=== PATIENT | male | born 1950 | race Caucasian/White ===

== ENCOUNTER 2017-06-10 14:58 | Day surgery (SDC) | payer BC ==
--- OUTSIDE RECORDS SUMMARY | 2017-06-10 15:00 | XMS REPORT | Clinical Summary ---
:1950 Author Organization [facility] Address [address] [place] [address] Care Team Providers Name Role Phone Salvatore Louis REYNOLDS Primary Care Provider Allergies No Known Allergies Current Medications Prescription Sig. Disp. Refills Start Date End Date Status tamsulosin (FLOMAX) Take 0.4 mg Active 0.4 mg by mouth capsule,extended nightly. release 24hr aspirin (ECOTRIN) Take 81 mg by Active 81 MG enteric mouth daily. coated tablet cholecalciferol, Take 50,000 Active vitamin D3, Units by (VITAMIN D3) 2,000 mouth once a unit capsule week. capsule cholecalciferol, TK 1 C PO 3 04/16/2016 Active vitamin D3, 50,000 ONCE A WEEK unit capsule esomeprazole Take by Active magnesium 22.3 mg mouth. capsule,delayed release(DR/EC) clopidogrel Take 1 tablet 90 tablet 3 12/13/2016 Active (PLAVIX) 75 mg (75 mg total) tabletIndications: by mouth Coronary artery daily. disease involving [place] heart with angina pectoris, unspecified vessel or lesion type rosuvastatin Take 1 tablet 90 tablet 3 01/08/2017 01/08/2018 Active (CRESTOR) 20 MG (20 mg total) tablet by mouth daily. KRILL OIL ORAL Take by 10/30/2016 Discontinued mouth. rosuvastatin Take 1 tablet 90 tablet 3 03/20/2016 01/08/2017 Discontinued (CRESTOR) 20 MG (20 mg total) tablet by mouth daily. clopidogrel Take 1 tablet 90 tablet 3 06/06/2016 12/13/2016 Discontinued (PLAVIX) 75 mg (75 mg total) tabletIndications: by mouth Coronary artery daily. disease involving [place] heart with angina pectoris, unspecified vessel or lesion type metoprolol tartrate Take 1 tablet 60 tablet 11 06/27/2016 10/30/2016 Discontinued (LOPRESSOR) 25 mg (25 mg total) tablet by mouth 2 (two) times a day. Active Problems Problem Noted Date Chest pain 10/30/2016 Stented coronary artery 05/03/2016 Coronary arteriosclerosis in [place] artery 04/11/2016 SOB (shortness of breath) 03/20/2016 Coronary artery disease involving [place] coronary artery of [place] heart 03/20 Coronary artery disease involving [place] coronary artery of [place] heart 02/02 without angina pectoris Unstable angina 02/03/2016 Gastroesophageal reflux disease with esophagitis 02/03/2016 Encounters Date Type Specialty Care Team Description 01/08/2017 Refill Cardiology Lashaun Aranda MA Med Refill 12/13/2016 Refill Cardiology Sergei Segura MA Med Refill 11/19/2016 Telephone Cardiology Sergei Segura MA Results (lab work) 10/30/2016 Lab Lab Jaya Galloway MD Other chest pain; SOB (shortness of breath); Coronary artery disease of [place] artery of [place] heart with stable angina pectoris 10/30/2016 Office Visit Cardiology Jaya Galloway MD Chest pain, unspecified type (Primary Dx); SOB (shortness of breath); Coronary artery disease of [place] artery of [place] heart with stable angina pectoris; Coronary artery disease involving [place] coronary artery of [place] heart without angina pectoris; Stented coronary artery 06/27/2016 Refill Cardiology Vincent Murrell MA Med Refill after 06/09/2016 Family History Medical History Relation Name Comments No Known Problems Father Uterine cancer Mother Relation Name Status Comments Father Mother Social History Tobacco Use Types Packs/Day Years Used Date Current Every Day Smoker Cigarettes Started: 02/07/2016 Smokeless Tobacco: Never Used Tobacco Cessation: Ready to Quit: No Alcohol Use Drinks/Week oz/Week Comments No Sex Assigned at Date Recorded Not on file Last Filed Vital Signs Vital Sign Reading Time Taken Blood Pressure 100/55 10/30/2016 8:18 AM CDT Pulse 53 10/30/2016 8:18 AM CDT Temperature - - Respiratory Rate - - Oxygen Saturation - - Inhaled Oxygen Concentration - - Weight 75.3 kg (166 lb) 10/30/2016 8:18 AM CDT Height 170.2 cm (5' 7") 10/30/2016 8:18 AM CDT Body Mass Index 26 10/30/2016 8:18 AM CDT Plan of Treatment Health Maintenance Due Date Last Done Comments COLONOSCOPY 07/10/1999 ZOSTER VACCINE 2009 PNEUMOCOCCAL POLYSACCHARIDE VACCINE AGE 65 AND OVER 2014 PNEUMOCOCCAL-13 2014 INFLUENZA VACCINE 09/25/2017 Implants Implanted Type 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 Device Expiration Model / Identifier Date Serial / Lot Stent Crnry Xnce Alpn Evrlms Eltng Sys 3.00mm X 12mm Otw - [id number] Coronary N/A: N/A URIOSTEGUI VASCULAR 11/13/2018 [id number] 12 / Implanted: 04/11/2016 (Quantity not on file) Stents DEVICES / [id number] Stent Crnry Xnce Alpn Evrlms Eltng Sys 3.00mm X 08mm Otw - [id number] Coronary N/A: N/A URIOSTEGUI VASCULAR 01/13/2018 [id number] 08 / Implanted: 04/11/2016 (Quantity not on file) Stents DEVICES / [id number] Stent Systm Cor Xience Alpine Everm Elut 2.75 Mm X 12 Mm / R - [id number] Coronary N/A: N/A URIOSTEGUI VASCULAR 05/26/2017 [id number] 12 / Implanted: 04/11/2016 (Quantity not on file) Stents DEVICES / [id number] Stent Crnry Xnce Alpn Evrlms Eltng Sys 3.00mm X 15mm Otw - [id number] Coronary N/A: N/A URIOSTEGUI VASCULAR 06/13/2018 [id number] 15 / Implanted: 04/11/2016 (Quantity not on file) Stents DEVICES / [id number] Results NON HDL CHOLESTEROL ([facility]) (10/30/2016 9:36 AM) Component Value Ref Range Non-HDL cholesterol 74 <130 mg/dL (calc) Comment: For patients with diabetes plus 1 major ASCVD risk factor, treating to a non-HDL-C goal of <100 mg/dL (LDL-C of <70 mg/dL) is considered a therapeutic option. Specimen Performing Laboratory [facility] CHOL/HDLC RATIO ([facility]) (10/30/2016 9:36 AM) Component Value Ref Range Cholesterol/HDL ratio 2.6 <5.0 (calc) Specimen Performing Laboratory [facility] COPY RECEIVED FROM: (10/30/2016 9:36 AM) Component Value Ref Range Copy received from: Comment: [facility] [address] [facility] [address] [place] [address] Specimen Performing Laboratory [facility] LDL-CHOLESTEROL (REFLEX [facility]) (10/30/2016 9:36 AM) Component Value Ref Range LDL cholesterol calculated 56 mg/dL (calc) Comment: Reference range: <100 Desirable range <100 mg/dL for patients with CHD or diabetes and <70 mg/dL for diabetic patients with known heart disease. The Piyush calculation is a validated novel method that provides better accuracy than the Friedewald equation in the estimation of LDL-C, particularly when TG levels are 150-400 mg/dL and LDL-C levels are lower than 70 mg/dL. Reference:Marko SIMON et al. Comparison of a Novel Method vs the Friedewald Equation for Estimating Low-Density Lipoprotein Cholesterol Levels From the Standard Lipid Profile. FIONA. 2013;310(19): 0111-5639. For additional information, please refer to http://education.Corporama/faq/LFI705 (This link is being provided for informational/ educational purposes only.) Specimen Performing Laboratory [facility] COPY(IES) SENT TO: (10/30/2016 9:36 AM) Component Value Ref Range Copies/mL Comment: [facility] [address] [facility] [address] [place] [address] Specimen Performing Laboratory [facility] CBC with platelet and differential (10/30/2016 9:36 AM) Component Value Ref Range WBC 6.8 3.8 - 10.8 Thousand/uL RBC 4.14 (L) 4.20 - 5.80 Million/uL HGB 10.0 (L) 13.2 - 17.1 g/dL HCT 34.2 (L) 38.5 - 50.0 % MCV 82.6 80.0 - 100.0 fL MCH 24.2 (L) 27.0 - 33.0 pg MCHC 29.2 (L) 32.0 - 36.0 g/dL RDW 16.8 (H) 11.0 - 15.0 % Platelet count 340 140 - 400 Thousand/uL MPV 9.5 7.5 - 12.5 fL Neutrophils, absolute 4,189 1,500 - 7,800 cells/uL Lymphocytes, absolute 1,578 850 - 3,900 cells/uL Monocytes, absolute 612 200 - 950 cells/uL Eosinophils, absolute 340 15 - 500 cells/uL Basophils, absolute 82 0 - 200 cells/uL Neutrophils 61.6 % Lymphocytes 23.2 % Monocytes 9.0 % Eosinophils 5.0 % Basophils + RC 1.2 % Specimen Performing Laboratory [facility] Triglycerides (10/30/2016 9:36 AM) Component Value Ref Range Triglycerides 93 <150 mg/dL Specimen Performing Laboratory [facility] HDL cholesterol (10/30/2016 9:36 AM) Component Value Ref Range HDL cholesterol 47 >40 mg/dL Specimen Performing Laboratory [facility] Cholesterol (10/30/2016 9:36 AM) Component Value Ref Range Cholesterol, total 121 <200 mg/dL Specimen Performing Laboratory [facility] Lipid panel (10/30/2016 9:36 AM) Component Value Ref Range Cholesterol, total 121 <200 mg/dL HDL cholesterol 47 >40 mg/dL Triglycerides 93 <150 mg/dL LDL cholesterol calculated 56 mg/dL (calc) Comment: Reference range: <100 Desirable range <100 mg/dL for patients with CHD or diabetes and <70 mg/dL for diabetic patients with known heart disease. The KaylieMurguia calculation is a validated novel method that provides better accuracy than the Friedewald equation in the estimation of LDL-C, particularly when TG levels are 150-400 mg/dL and LDL-C levels are lower than 70 mg/dL. Reference:Marko SIMON et al. Comparison of a Novel Method vs the Friedewald Equation for Estimating Low-Density Lipoprotein Cholesterol Levels From the Standard Lipid Profile. FIONA. 2013;310(19): 3231-3546. For additional information, please refer to http://education.MoBank.DesignMyNight/faq/CNV524 (This link is being provided for informational/ educational purposes only.) Cholesterol/HDL ratio 2.6 <5.0 (calc) Non-HDL cholesterol 74 <130 mg/dL (calc) Comment: For patients with diabetes plus 1 major ASCVD risk factor, treating to a non-HDL-C goal of <100 mg/dL (LDL-C of <70 mg/dL) is considered a therapeutic option. Specimen Performing Laboratory [facility] Comprehensive metabolic panel (10/30/2016 9:36 AM) Component Value Ref Range Glucose 97 65 - 99 mg/dL Comment: Fasting reference interval BUN, whole blood 20 7 - 25 mg/dL Creatinine 0.96 0.70 - 1.25 mg/dL Comment: For patients >49 years of age, the reference limit for Creatinine is approximately 13% higher for people identified as -Hungarian. EGFR Non-Afr. Hungarian 81 > OR=60 mL/min/1.73m2 EGFR 94 > OR=60 mL/min/1.73m2 BUN/creatinine ratio NOT APPLICABLE 6 - 22 (calc) Sodium 141 135 - 146 mmol/L Potassium 5.3 3.5 - 5.3 mmol/L Chloride 109 98 - 110 mmol/L CO2 28 20 - 31 mmol/L Calcium 9.1 8.6 - 10.3 mg/dL Protein 7.0 6.1 - 8.1 g/dL Albumin, S 4.1 3.6 - 5.1 g/dL Globulin, total 2.9 1.9 - 3.7 g/dL (calc) Albumin/globulin ratio 1.4 1.0 - 2.5 (calc) Total bilirubin 0.2 0.2 - 1.2 mg/dL Alkaline phosphatase 85 40 - 115 U/L AST 16 10 - 35 U/L ALT 14 9 - 46 U/L Specimen Performing Laboratory [facility] ECG 12 lead (10/30/2016 8:26 AM) Component Value Ref Range Ventricular rate 50 Atrial rate 50 MN interval 136 QRSD interval 82 QT interval 428 QTC interval 390 P axis 1 82 QRS axis 1 76 T wave axis 63 EKG impression Sinus bradycardia-Otherwise normal ECG-In automated comparison with ECG of 12-APR-2016 06:12,-No significant change was found- Specimen Performing Laboratory [facility] [address] [place] [address] after 06/09/2016 Insurance Payer Benefit Plan / Group Subscriber ID Type Phone Address BCBS BCBS CHOICE PPO/FEDERAL EMPL PPO xxxxxxxxxxxx PPO Work: [address] [phone] [address] [place] [address] Home:
[2017-06-10] MEDS ORDERED: FUROSEMIDE 20 MG/ 2ML VIAL IV SCH (16:00)
[2017-06-10] MEDS ORDERED: NA CHLORIDE 0.9% 250 ML ONE (17:25)
[2017-06-11 02:40] LABS: Hematocrit 31.4 % (39.6-49.0)
[2017-06-11 02:55] VITALS: BP 127/63; TEMP 97.2; O2SAT 98
== END 2017-06-11 02:54 | disposition home or self-care (01) ==
LOC: DS 14:58 → 4TH 15:11 → DS 06-11 02:54
PROVIDERS: ATTEND Internal Medicine Gastroenterology
PROC: 30233N1 Transfusion of Nonautologous Red Blood Cells into Peripheral Vein, Percutaneous Approach (ICD-10-PCS; principal; 2017-06-10)
DX: D50.9 Iron deficiency anemia, unspecified (principal); K92.2 Gastrointestinal hemorrhage, unspecified; R53.83 Other fatigue
CPT/HCPCS: 36415; 36430; 85014; 85018; 86850; 86900; 86901; J1940; P9016